=== PATIENT | male | born 1945 | race American Indian/Alaskan Native ===

== ENCOUNTER 2019-05-18 08:40 | Day surgery (SDC) | payer MEDICARE, OTHER ==
[2019-05-18 09:24] LABS: Hematocrit 44.4 % (35.5-45.6); Hemoglobin 14.8 gm/dl (11.8-15.2); Mean Corpuscular HGB Conc 33 % (32-34); Mean Corpuscular Volume 91 fl (84-94); Platelet Count 177 K/mm3 (140-440); Red Cell Distribution Width 15.1 % (13.2-15.2)
--- NOTE | 2019-05-18 09:36 | Anesthesia Consultation ---
Anesthesia Consult and Med Hx Date of service: 05/18/19 - Airway Anesthetic Teeth Evaluation: Poor ROM Head & Neck: Adequate Mental/Hyoid Distance: Adequate Mallampati Class: Class III Intubation Access Assessment: Possibly Difficult - Pulmonary Exam CTA: Yes - Cardiac Exam Cardiac Exam: No Murmur (irregular rhythm) - Pre-Operative Health Status ASA Pre-Surgery Classification: ASA3 Proposed Anesthetic Plan: MAC - Pulmonary Hx Smoking: Yes (former smoker; quit 20yrs ago) Hx Respiratory Symptoms: No (hx lung nodule s/p resection) COPD: No - Cardiovascular System Hx Hypertension: Yes (no antihypertensives today) Hx Heart Attack/AMI: No Hx Percutaneous Transluminal Coronary Angioplasty (PTCA): No Hx Cardia Arrhythmia: Yes (a-fib; last dose xarelto 05/17/19 PM) Hx Pacemaker: No Hx Valvular Heart Disease: No - Central Nervous System Hx Seizures: No CVA: No - Gastrointestinal Hx Gastroesophageal Reflux Disease: No - Endocrine Hx Renal Disease: No Hx Liver Disease: No Hx Insulin Dependent Diabetes: No Hx Non-Insulin Dependent Diabetes: No Hx Thyroid Disease: No - Other Systems Hx Obesity: Yes - Additional Comments Anesthesia Medical History Comments: Hx awareness under anesthesia many years ago. No issues with more recent anesthetics. Most recent cardiology records reviewed. TTE 12/2018 EF 50%, no significant valvular lesions.
[2019-05-18 09:37] LABS: INR 1.95 (0.87-1.13)
--- NOTE | 2019-05-18 09:37 | Anesthesia Day of Surgery ---
Anesthesia Day of Surgery - Day of Surgery Patient Examined: Yes Patient H&P Reviewed: Yes Patient is NPO: Yes
[2019-05-18 09:38] LABS: Partial Thromboplastin Time 36.8 Sec. (24.2-36.6)
[2019-05-18] MEDS ORDERED: NACL 0.9% 500 ML 500 ML IV SCH (10:00)
[2019-05-18] MEDS ORDERED: DIPRIVAN 10 MG/ML IV ONE ×2 (10:29)
[2019-05-18 10:41] LABS: BUN/Creatinine Ratio 8; Blood Urea Nitrogen 11 mg/dL (9-20); Calcium 8.7 mg/dL (8.4-10.2); Hemolysis Index 32
[2019-05-18 13:05] VITALS: BP 151/105
--- NOTE | 2019-05-18 14:01 | Post Anesthesia Evaluation ---
- Post Anesthesia Evaluation Patient Participated: Yes Airway Patent: Yes Stable Respiratory Function: Yes Nausea/Vomiting: No Temp > 96.8F: Yes Pain Manageable: Yes Adequeate Hydration: Yes Anesthesia Complications: No
--- NOTE | 2019-05-18 23:55 | Procedure Note ---
ELECTIVE DC CARDIOVERSION PROCEDURE REPORT INDICATION FOR PROCEDURE: Atrial fibrillation. Informed consent was obtained. The patient was brought to the outpatient cardiac catheterization electrophysiology area at [facility] in a fasted state. Intravenous sedation was achieved with the assistance of Anesthesiology. Direct current electrical cardioversion was performed with paddles positioned in the anterior, posterior locations. Three cardioversion attempts were performed: The first at 200 joules, the second at 300 joules and the third at 360 joules. The procedure was unsuccessful. The patient remained in atrial fibrillation and did not convert to sinus rhythm. Post cardioversion ecg: atrial fibrillation/moderate ventricular response. The patient recovered from anesthesia uneventfully. There were no complications. After meeting discharge criteria the patient was released from the outpatient department with instructions to follow up with her primary director of services as previously scheduled or sooner as needed. JOB# [id number] RODERICK/MILLY VIDAL
== END 2019-05-18 08:41 | disposition home or self-care (01) ==
LOC: CATHLABREC 08:40
PROVIDERS: ATTEND Internal Medicine Cardiovascular Disease
DX: I48.91 Unspecified atrial fibrillation (principal); I11.0 Hypertensive heart disease with heart failure; I50.9 Heart failure, unspecified; E66.9 Obesity, unspecified; E78.00 Pure hypercholesterolemia, unspecified; F32.9 Major depressive disorder, single episode, unspecified; Z87.891 Personal history of nicotine dependence; Z88.8 Allergy status to other drugs, medicaments and biological substances; Z88.5 Allergy status to narcotic agent; Z79.82 Long term (current) use of aspirin; Z79.899 Other long term (current) drug therapy; Z68.32 Body mass index [BMI] 32.0-32.9, adult
CPT/HCPCS: 36415; 80048; 85027; 85610; 85730; 92960; 93005; 93010; J2704; J7040